=== PATIENT | female | born 1940 | race Caucasian/White ===

== ENCOUNTER 2016-07-06 10:27 | Day surgery (SDC) | payer MEDICARE ==
--- NOTE | ~2016-07-06 | EGD ---
EGD REPORT [facility] [address] [place]. [address] NAME: JACKIE PUENTE : [birth year] STATUS : REG [facility]#: [id number] AGE: 76 ADM/REG DATE : 07/06/16 MR#: [id number] REPORT SERV DATE: 07/06/16 DICTATED BY: JORDYN NATARAJAN DATE: 07/06/16 REPORT STATUS : Draft TRANSCRIBED BY: [employer] DATE: 07/06/16 [facility] Patient Name: Jackie Puente Date of : 1940 Attending MD: JORDYN NATARAJAN MD Procedure Date No Time: 07/06/2016 Procedure: Colonoscopy Indications: High risk colon cancer surveillance: Personal history of colonic polyps, FH of Colonic Polyps - 1st degree relative Referring MD: NATALIE JONES Medicines: as per anesthesia Complications: No immediate complications. Procedure: Pre-Anesthesia Assessment: - ASA Grade Assessment: II - A patient with mild systemic disease. After I obtained informed consent, the scope was passed under direct vision. Throughout the procedure, the patient's blood pressure, pulse, and oxygen saturations were monitored continuously. The PCF [id number] was introduced through the anus and advanced to the cecum, identified by appendiceal orifice and ileocecal valve. The colonoscopy was performed without difficulty. The patient tolerated the procedure. The quality of the bowel preparation was adequate to identify polyps. Findings: The perianal and digital rectal examinations were normal. A single medium-mouthed diverticulum was found in the sigmoid colon. Internal hemorrhoids were found during endoscopy and were mild. Impression: - Diverticulosis in the sigmoid colon. - Internal hemorrhoids. Recommendation: - Continue present medications. Procedure Code(s): --- Professional --- 58505, Colonoscopy, flexible, proximal to splenic flexure; diagnostic, with or without collection of specimen(s) by brushing or washing, with or without colon decompression (separate procedure) Diagnosis Code(s): --- Professional --- K64.8, Other hemorrhoids K57.30, Diverticulosis of large intestine without EGD REPORT [facility] [address] [place] [address] [place]. [address] NAME: JACKIE PUENTE : [birth year] STATUS : REG [facility]#: [id number] AGE: 76 ADM/REG DATE : 07/06/16 MR#: [id number] REPORT SERV DATE: 07/06/16 DICTATED BY: JORDYN NATARAJAN. DATE: 07/06/16 REPORT STATUS : Draft TRANSCRIBED BY: [employer] DATE: 07/06/16 perforation or abscess without bleeding Z86.010, Personal history of colonic polyps Z83.71, Family history of colonic polyps CPT copyright 2013 [employer]. All rights reserved. The codes documented in this report are preliminary and upon final cleaner review may be revised to meet current compliance requirements. JORDYN NATARAJAN MD 07/06/2016 1:04 PM This report has been signed electronically. Number of Addenda: 0 Note Initiated On: 07/06/2016 12:42 PM Scope Withdrawal Time 0 hours 6 minutes [address] [place] [address] [place] [address]
[~2016-07-06 10:27] MED LIST: COZ50 PO; FLONASE NAS; OCUVITE PO; ZANTAC150 MG PO
== END 2016-07-06 23:59 | disposition home or self-care (01) ==
LOC: DMU 10:27
PROVIDERS: Internal Medicine Gastroenterology
PROC: 0DJD8ZZ Inspection of Lower Intestinal Tract, Via Natural or Artificial Opening Endoscopic (ICD-10-PCS; principal; 2016-07-06 11:00)
DX: Z12.11 Encounter for screening for malignant neoplasm of colon (principal); Z86.010 Personal history of colon polyps; K57.30 Diverticulosis of large intestine without perforation or abscess without bleeding; K64.8 Other hemorrhoids; Z83.71 Family history of colonic polyps; I10 Essential (primary) hypertension; Z88.5 Allergy status to narcotic agent; Z79.51 Long term (current) use of inhaled steroids; Z91.040 Latex allergy status